=== PATIENT | female | born 1970 | race Caucasian/White ===

== ENCOUNTER 2023-09-13 08:21 | Inpatient (IN) ==
--- NOTE | 2023-08-28 10:25 | PAT Medication Instructions ---
Medication Instructions Date of Service August 28, 2023 Home Medications acetaminophen 500 mg tablet 500 mg PO QID PRN Pain diclofenac sodium 75 mg tablet,delayed release 75 mg PO BID escitalopram oxalate 10 mg tablet 10 mg PO QAM furosemide 20 mg tablet 20 mg PO QAM gabapentin 300 mg capsule 300 mg PO TID ASK your surgeon for instructions diclofenac sodium 75 mg tablet,delayed release 75 mg PO BID DO NOT take the morning of surgery furosemide 20 mg tablet 20 mg PO QAM Take morning of surgery With a small sip of water, OTHERWISE NOTHING TO EAT OR DRINK AFTER MIDNIGHT: acetaminophen 500 mg tablet 500 mg PO QID PRN Pain (if needed) escitalopram oxalate 10 mg tablet 10 mg PO QAM gabapentin 300 mg capsule 300 mg PO TID Take evening before surgery acetaminophen 500 mg tablet 500 mg PO QID PRN Pain (if needed) gabapentin 300 mg capsule 300 mg PO TID Other Notes If you have any questions please call us at [phone] or [phone] or [phone] or [phone]
--- NOTE | 2023-08-30 11:32 | Anesthesiology Consultation ---
Date of Service August 30, 2023 Assessment & Plan (1) Encounter for pre-operative examination: Plan - awaiting surgeon ordered medical clearance, Dr. Jennifer Davidson. Chart Review Chart Review: Pending: Refer to Additional Notes / Consult section and Patient seen in Pre Admission Testing Teaching & Discussion Pre-Anesthesia Teaching/Discussion Notes: Instructed NPO after midnight before surgery, except medications with 15 cc of water. Medication instructions provided according to the PAT guidelines. History Surgery Operation Date: 09/13/23 12:55 Proposed Procedures p L4-S1 Decompression and Fusion, Spinal Cord Monitoring - Luis F Flores, Height/Weight Height: 5 ft 7 in Weight: 152.5 kg Allergies Allergy/AdvReac Type Severity Reaction Status Date / Time bacitracin Allergy Severe Rash Verified 08/26/23 10:12 [From Triple Antibiotic] neomycin Allergy Severe Rash Verified 08/26/23 10:12 [From Triple Antibiotic] polymyxin B Allergy Severe Rash Verified 08/26/23 10:12 [From Triple Antibiotic] food dye Allergy Severe Hives Uncoded 08/26/23 10:14 Medications Home Medications Medication Instructions Recorded Confirmed Last Taken acetaminophen 500 mg tablet 500 mg PO QID PRN Pain 08/26/23 08/26/23 Unknown diclofenac sodium 75 mg 75 mg PO BID 08/26/23 08/26/23 Unknown tablet,delayed release escitalopram oxalate 10 mg tablet 10 mg PO QAM 08/26/23 08/26/23 Unknown furosemide 20 mg tablet 20 mg PO QAM 08/26/23 08/26/23 Unknown gabapentin 300 mg capsule 300 mg PO TID 08/26/23 08/26/23 Unknown Past Medical History Medical History Anxiety History of anesthesia reaction "difficult time waking up, slow and groggy" Stress incontinence Patient denies h/o stroke, seizures, heart attack, heart failure, DM, HTN, blood clots/DVTs or blood transfusions. Exercise / Class Metabolic Activity II 4-5 Yardwork/Stairs/Walk up hill (denies chest discomfort or shortness of breath with 1 FOS) Past Surgical History Surgical History (Updated 08/30/23 @ 11:29 by Helen Spencer PA-C) History of hysterectomy History of surgery cervical lymph node excision yrs ago-benign Past Anesthesia History No Family Hx of Anesthesia Complications and Other (slow to wake, groggy: denies re-intubation) History of PONV No Hx of PONV and Hx of Motion Sickness Social History Smoking Status: Former smoker Do You Dip or Chew Tobacco: No Smoking End Date: 17 yr ago Hx Alcohol Use: Yes alcohol intake frequency: holidays/special occasions only Hx Substance Use: No substance use type: does not use Review of Systems Snoring, denies witnessed apneas. Patient denies chest pain, shortness of breath, dyspnea on exertion, reflux, fever, chills, cough, wheezing, or palpitations. Physical Exam Vital Signs Vitals BP 131/90 P 84 TEMP 98.3 SP02 97% on RA RESP 18 Physical Patient resting comfortably in chair in no acute distress, alert and oriented, responding appropriately throughout visit Full cervical extension range of motion without pain TMD < 3 finger breadths Mallampati Score 3, small oral opening Dentition: intact, denies chipped or loose teeth, caps/crowns, implants or bridges Lungs: normal respiratory effort. Good air movement, clear throughout to auscultation, no adventitious breath sounds Cardiac: regular rate and rhythm, no murmurs noted Carotid arteries: negative bruit bilat Lab Results Anesthesia Preop Results Results Anesthesia Widget: WBC 6.82 K/ul (4.8-10.8) 08/30/23 Hgb 13.6 g/dl (12.0-16.0) 08/30/23 Hct 42.2 % (37.0-47.0) 08/30/23 Plt 298 K/uL (130-400) 08/30/23 Na 137 mmol/L (136-145) 08/30/23 K 4.1 mmol/L (3.5-5.1) 08/30/23 Cl 102 mmol/L (98-107) 08/30/23 CO2 28 mmol/L (21-32) 08/30/23 BUN 15 mg/dl (6-23) 08/30/23 Creat 0.78 mg/dl (0.6-1.2) 08/30/23 Glucose Level 121 mg/dl (70-99(Fasting)) H 08/30/23 PT 10.7 Seconds (9.0-12.0) 08/30/23 PTT 24.5 Seconds (21.0-31.0) 08/30/23 INR 1.0 (0.9-1.1) 08/30/23 Urine Color Yellow 08/30/23 Urine Appearance Clear (Clear) 08/30/23 Urine pH 5.5 (4.5-7.5) 08/30/23 Urine Specific [place] 1.027 (1.000-1.030) 08/30/23 Urine Protein Negative (Negative) 08/30/23 Urine Glucose (UA) Negative (Negative) 08/30/23 Urine Ketones Negative (Negative) 08/30/23 Urine Blood Negative (Negative) 08/30/23 Urine Nitrite Negative (Negative) 08/30/23 Urine Bilirubin Negative (Negative) 08/30/23 Urine Urobilinogen Negative (Negative) 08/30/23 Urine Leukocyte Esterase Negative (Negative) 08/30/23 Blood Type A Positive 08/30/23 Antibody Screen NEGATIVE 08/30/23 Testing Electrocardiogram Date: 08/30/23 NSR, rate 77 bpm Chest X-Ray Date: 08/30/23 No acute process
[~2023-09-13 08:21] MED LIST: ACETAMINOPHEN 500 MG TAB PO SCH; CeleBREX 200 MG CAP PO SCH; GABAPENTIN 900 MG DOSE PO SCH; LR 15ML/HR IV SCH; LR 60ML/HR IV SCH
[2023-09-13] MEDS ORDERED: ONDANSETRON INJ 2 MG/ML 2 ML VIAL IV PRN ×2 (09:43→16:25)
[2023-09-13] MEDS ORDERED: PROMETHAZINE HCL 6.25 MG in SODIUM CHLORIDE 0.9% 50 ML IV PRN (09:43)
[2023-09-13] MEDS ORDERED: ePHEDrine sulfate 50 MG/ML AMP IV PRN (09:43)
[2023-09-13] MEDS ORDERED: ATROPINE SULFATE 0.1 MG/ML 10ML SYR IV PRN (09:43)
[2023-09-13] MEDS ORDERED: LIDOCAINE 2% 2 ML VIAL/AMP(20MG/ML) INFIL ONE (10:05)
[2023-09-13] MEDS ORDERED: ONDANSETRON INJ 2 MG/ML 2 ML VIAL ONE (10:05)
[2023-09-13] MEDS ORDERED: PROPOFOL IV EMULSION 10 MG/ML 20 ML VIAL IV ONE (10:05)
[2023-09-13] MEDS ORDERED: MIDAZOLAM HCL 1 MG/ML 2ML VIAL ONE (10:05)
[2023-09-13] MEDS ORDERED: NEOSTIGMINE METHYLSULFATE 1 MG/ML 10ML VIAL ONE (10:06)
[2023-09-13] MEDS ORDERED: ROCURONIUM BROMIDE 10 MG/ML 5 ML VIAL IV ONE ×11 (10:06→13:05)
[2023-09-13] MEDS ORDERED: DEXAMETHASONE SOD INJ 4 MG/ML VIAL ONE (10:06)
[2023-09-13] MEDS ORDERED: GLYCOPYRROLATE 0.2 MG/ML VIAL ONE (10:06)
[2023-09-13] MEDS ORDERED: HYDROmorphone INJ 2 MG/ML SYR/VIAL ONE (10:06)
[2023-09-13] MEDS ORDERED: fentaNYL citrate PF 100 MCG/2 ML VIAL ONE (10:06)
--- NOTE | 2023-09-13 10:09 | History & Physical Bridge Note ---
Date of Service September 13, 2023 History & Physical Bridge Note I have examined the patient, reviewed the History & Physical and in the interval since the performance of the History & Physical I have noted the following changes of clinical significance: no changes noted
--- NOTE | 2023-09-13 10:10 | History & Physical Report ---
Date of Service September 13, 2023 Assessment & Plan (1) Neurogenic claudication due to lumbar spinal stenosis: Plan: L4-S1 decompression and fusion History of Present Illness Chief Complaint: Back and leg pain Primary Care Provider: Jennifer Davidson This is a 53-year-old female presents with chronic persistent back and leg pain after failing course of nonoperative care she is here for surgical invention. Allergies Allergy/AdvReac Type Severity Reaction Status Date / Time bacitracin Allergy Severe Rash Verified 09/13/23 08:58 [From Triple Antibiotic] neomycin Allergy Severe Rash Verified 09/13/23 08:58 [From Triple Antibiotic] polymyxin B Allergy Severe Rash Verified 09/13/23 08:58 [From Triple Antibiotic] food dye Allergy Severe Hives Uncoded 09/13/23 08:58 Home Medications Medication Instructions Recorded Confirmed Type acetaminophen 500 mg tablet 500 mg PO QID PRN Pain 08/26/23 09/13/23 History diclofenac sodium 75 mg 75 mg PO BID 08/26/23 09/13/23 History tablet,delayed release escitalopram oxalate 10 mg tablet 10 mg PO QAM 08/26/23 09/13/23 History (Lexapro) furosemide 20 mg tablet 20 mg PO QAM 08/26/23 09/13/23 History gabapentin 300 mg capsule 300 mg PO TID 08/26/23 09/13/23 History Past Med/Surg History Medical History (Updated 09/13/23 @ 10:10 by Luis F Flores DO) History of anesthesia reaction "difficult time waking up, slow and groggy" Stress incontinence Anxiety Surgical History (Updated 08/30/23 @ 11:29 by Helen Spencer PA-C) History of surgery cervical lymph node excision yrs ago-benign History of hysterectomy Social History Smoking Status: Former smoker Tobacco Type: Cigarettes Smoking End Date: 17 yr ago; Do You Dip or Chew Tobacco: No; Tobacco Cessation Education Requested by Patient: No Hx Alcohol Use: Yes Hx Substance Use: No Preferred Language: French Windshield Repair Technician Required: No Beliefs That Will Affect Care: None Current Living Situation: Spouse Feels Safe at Home: Yes Safety Concerns: Feels Safe At This Time Assistive Devices: Cane and Glasses Physical Exam Physical Exam: Patient is alert and oriented Heart regular rhythm lungs clear Results & Data Results & Data Vital Signs (Past 12 Hours) Vital Signs Temp Pulse Resp BP Pulse Ox O2 Del Method 09/13/23 09:01 36.8 C 77 18 152/85 H 97 Room Air
[2023-09-13] MEDS ORDERED: ceFAZolin 330 MG/ML 1 GM VIAL ONE (10:39)
[2023-09-13] MEDS ORDERED: BUPIVACAINE/EPINEPHRINE 0.25% 1:200,000 30 ML VIAL ONE (10:39)
[2023-09-13] MEDS ORDERED: FLOSEAL HEMOSTATIC MATRIX 10ML TOP ONE (11:31)
[2023-09-13] MEDS ORDERED: ePHEDrine sulfate 50 MG/5 ML SYR ONE (11:44)
[2023-09-13] MEDS ORDERED: SURGICEL ABSORB HEMOSTAT 2IN X 14IN TOP ONE (12:48)
[2023-09-13] MEDS ORDERED: ALBUMIN HUMAN 5% 12.5 GM/250 ML VIAL IV ONE (13:03)
[2023-09-13] MEDS ORDERED: SUGAMMADEX SODIUM 200 MG/2 ML VIAL IV ONE (13:13)
--- NOTE | 2023-09-13 13:21 | Operative Report ---
Post Operative Report Pre & Post Diagnosis Operation Date: 09/13/23 10:15 Pre-Op Diagnosis: Patient lumbar spinal stenosis with neurogenic claudication Morbid obesity Post-Op Diagnosis: Same I identified the patient and participated in the time-out.: Yes Procedure Operation Date: 09/13/23 10:15 Actual Procedures #1 lumbar decompression bilateral medial facetectomies and foraminotomies L3-L4, L4-5 and L5-S1. #2 posterior spinal fusion L4-5 L5-S1. #3 please posterior instrumentation L4-S1. #4 interbody fusion L4-L5 L5-S1. #5 placement spiral 14 x 26 mm cage at L4-5 and 13 x 26 mm cage x2 at L5-S1. #6 placement of locally harvested morselized autograft and posterior gutters. #7 placement of I factor interbody spaces and infuse bone sponge by mass graft in the posterior gutters. Surgeon Luis F Flores, DO Training And Development Assistant Star Ni Estimated Blood Loss 1,200 Findings See Below The patient is 5 foot 7 weighing over 152 kg a BMI in excess of 52. This combined with an EBL of greater than 1000 cc created significant technical difficulty and a at least Specimens None Indications This is a 53-year-old female who presents above-mentioned diagnosis of pain since course of nonoperative care is here for surgical invention. Description of Procedure Patient met with identified informed consent obtained. Patient was then taken to the operative suite underwent ablation placed in a prone position ingestible top Laurent frame. All bony promises well-padded eyes inspected to ensure no external precipice spine. This point lumbar spine was prepped and draped in a sterile fashion. Sharp dissection with the assistance of Bovie cards from down to and exposing the lamina and transverse processes of L4-5 and sacral ala bilaterally. For calcified fashion complete laminectomy of L5 L4 partial laminectomy L3 was performed including bilaterally facetectomies and foraminotomies addressing severe spinal stenosis and obvious neural compression. Pedicle screws were then placed in L4-5 and S1 levels bilaterally with assistance of fluoroscopy in the process marcella placed. By way of transforaminal approach on the right discectomy L5-S1 was performed endplates created to subcortical bone and a 13 x 26 mm Spira cage with I factor tapped in position. Then proceeded to the left side of the L5-S1 completed discectomy through a transforaminal approach and plates created to subcortical mean bone and a second 13 x 26 mm Spira cage with I factor tapped position. Then proceeded to L [address] of transforaminal approach on the right complete discectomy was performed endplates created to subcortical mean bone and a 14 x 26 mm prior cage with I factor tapped position. The rods were then compressed locked in final position bilaterally. The transverse processes of L4-5 and sacral ala burred to subcortical bleeding bone. Infuse collagen sponge for mass graft local autograft placed in the posterior gutters. 15 round ADALBERTO inserted. Incision was then closed with 1 Vicryl fascia 2-0 Vicryl subcutaneously and 4 Monocryl for final closure Steri-Strips sterile dressings placed. Patient waken taken to PACU stable condition. Please note spinal cord monitoring visualized at the procedure no changes noted. Lastly Star Ni was present at the entire surgery about the patient position complex portion of the surgeon fashion closure. I attest to the content of the Intraoperative Record and any orders documented therein. Any exceptions are noted below.
[2023-09-13] MEDS ORDERED: LABETALOL HCL IV 5 MG/ML 20ML IV ONE (13:35)
--- NOTE | 2023-09-13 13:38 | Fluoroscopy Report ---
FL lumbar spine 2-3V CLINICAL HISTORY: L4-S1 DECOMPRESSION AND FUSION COMPARISON STUDY: None FLUOROSCOPY TIME: 30.3 seconds FLUOROSCOPY IMAGES: 3 EXPOSURE DOSE: 49.33 mGy FINDINGS: Posterior interbody marcella and screw fusion hardware with discectomy changes noted at what is labeled the L4-S1 levels. The hardware appears intact. No unexpected opaque foreign body is identifie d. IMPRESSION: Fluoroscopic assistance as above. ACT 112: Negative or not required by law. Electronically signed by: Maynor Lawson M.D. 09/13/2023 1:37 PM
[2023-09-13] MEDS: fentaNYL citrate PF 100 MCG/2 ML VIAL IV PRN ×4 (14:32→14:50)
[2023-09-13] MEDS: HYDROmorphone INJ 2 MG/ML SYR/VIAL IV PRN ×2 (14:57→15:07)
--- NOTE | 2023-09-13 15:16 | Anesthesiology Progress Note ---
Date of Service September 13, 2023 Anesthesia Post Procedure Vital Signs Vital Signs: Temp Pulse Pulse Resp BP Pulse Ox O2 Del Method 09/13/23 15:00 36.1 C L 84 12 154/78 H 95 Nasal Cannula 09/13/23 14:50 83 13 145/83 H 96 Oxymask 09/13/23 14:40 86 17 158/78 H 95 Oxymask 09/13/23 14:30 81 12 168/85 H 95 Oxymask 09/13/23 14:20 82 14 148/83 H 95 Oxymask 09/13/23 14:10 81 14 146/88 H 94 Oxymask 09/13/23 14:00 77 15 151/81 H 95 Oxymask 09/13/23 13:51 36.4 C L 78 13 162/81 H 98 Oxymask 09/13/23 09:01 36.8 C 77 18 152/85 H 97 Room Air O2 Flow Rate 09/13/23 15:00 4 09/13/23 14:50 4 09/13/23 14:40 4 09/13/23 14:30 4 09/13/23 14:20 4 09/13/23 14:10 4 09/13/23 14:00 6 09/13/23 13:51 6 09/13/23 09:01 Pain Intensity Bilateral Back: Pain Intensity: 5 Left Leg: Pain Intensity: 5 Transfer of Care Handoff Completed per policy Notes Mental Status: alert / awake / arousable Patient Amnestic to Procedure: Yes Nausea / Vomiting: adequately controlled Pain: adequately controlled Airway Patency, RR, SpO2: stable & adequate BP & HR: stable & adequate Hydration State: stable & adequate Anesthetic Complications: no major complications apparent
[2023-09-13] MEDS ORDERED: MAGNESIUM HYDROXIDE SUSP 30 ML UDC PO PRN (16:25)
[2023-09-13] MEDS ORDERED: FAMOTIDINE 20 MG TAB PO PRN (16:25)
[2023-09-13] MEDS ORDERED: diphenhydrAMINE Capsule 25 MG CAP PO PRN (16:25)
[2023-09-13] MEDS ORDERED: ACETAMINOPHEN 1,000 MG/100 ML VIAL IV PRN (16:25)
[2023-09-13] MEDS ORDERED: HYDROmorphone INJ 1 MG/ML SYRINGE IV PRN (16:25)
[2023-09-13] MEDS ORDERED: ACETAMINOPHEN 500 MG TAB PO PRN (16:25)
[2023-09-13] MEDS ORDERED: DO NOT ADMINISTER FLU VACCINE PRN (16:25)
[2023-09-13] MEDS ORDERED: ALUMINUM/MAGNESIUM SUSP 30 ML UDC PO PRN (16:25)
[2023-09-13] MEDS ORDERED: HYDROmorphone INJ 0.5 MG/0.5 ML SYR IV PRN (16:25)
[2023-09-13] MEDS ORDERED: NALOXONE HCL 0.4 MG/1 ML VIAL/CARP IV PRN (16:25)
[2023-09-13] MEDS ORDERED: bisacodyL 10 MG SUPP PR PRN (16:25)
[2023-09-13] MEDS ORDERED: LORazepam 0.5 MG TAB PO PRN (16:25)
[2023-09-13] MEDS ORDERED: hydrOXYzine HCl 25 MG TAB PO PRN (16:25)
[2023-09-13] MEDS ORDERED: ONDANSETRON 4 MG OD TAB PO PRN (16:25)
[2023-09-13] MEDS ORDERED: METOCLOPRAMIDE HCL INJ 5 MG/ML 2 ML VIAL IV PRN (16:25)
[2023-09-13] MEDS ORDERED: oxyCODONE HCL IR 5 MG TAB (IMMEDIATE RELEASE) PO PRN (16:25)
[2023-09-13] MEDS ORDERED: LORazepam 2 MG/1 ML VIAL IV PRN (16:25)
[2023-09-13] MEDS ORDERED: PROMETHAZINE HCL 12.5 MG in SODIUM CHLORIDE 0.9% 50 ML IV PRN (16:25)
[2023-09-13] MEDS ORDERED: SOD PHOSPHATE/SOD BIPHOSPHATE ENEMA 132 ML BTL PR PRN (16:25)
[2023-09-13] MEDS ORDERED: DO NOT ADMINISTER PNEUMOCOCCAL VACCINE PRN (16:25)
[2023-09-13] MEDS: LACTATED RINGER'S 1,000 ML IV SCH ×2 (16:58→23:55)
[2023-09-13] MEDS: GABAPENTIN 300 MG CAP PO SCH ×2 (18:16→20:40)
[2023-09-13] MEDS: ceFAZolin 2000MG 2,000 MG/15 ML SYR IV SCH (18:16)
[2023-09-13] MEDS: DOCUSATE SODIUM/SENNA 50/8.6MG TAB PO SCH (20:40)
[2023-09-13] MEDS: traMADol HCL 50 MG TABLET PO PRN (20:43)
[2023-09-14] MEDS: traMADol HCL 50 MG TABLET PO PRN ×3 (03:14→17:39)
[2023-09-14] MEDS: ceFAZolin 2000MG 2,000 MG/15 ML SYR IV SCH (03:14)
[2023-09-14 06:27] LABS: Basophils # (auto) 0.01 K/uL (0.00-0.20); Basophils % (auto) 0.1 %; Hematocrit (blood only) 30.7 % (37.0-47.0); Immature Granulocytes # (auto) 0.11 K/uL (0.01-0.20); Immature Granulocytes % (auto) 0.9 %; Lymphocytes # (auto) 1.07 K/uL (1.20-3.40); Lymphocytes % (auto) 8.6 %; Mean Corpuscular Hemoglobin 29.2 pg (25.0-34.0); Mean Corpuscular Hgb Conc 32.6 g/dL (32.0-36.0); Mean Corpuscular Volume 89.8 fL (80.0-100.0); Mean Platelet Volume 9.6 fL (9.4-12.4); Monocytes % (auto) 7.2 %; Neutrophils % (auto) 83.2 %; Platelet Count 236 K/uL (130-400); RDW Coefficient of Variation 14.1 % (11.5-14.5); RDW Standard Deviation 46.6 fL (36.4-46.3); Red Blood Count 3.42 M/uL (4.20-5.40); White Blood Count 12.49 K/ul (4.8-10.8)
[2023-09-14] MEDS: POLYETHYLENE (MIRALAX) 17 GM PACK PO SCH ×3 (06:33→17:41)
[2023-09-14 06:36] LABS: BUN Creatinine Ratio 16.7 (10-20); Calcium 8.4 mg/dl (8.6-10.3); Creatinine Clr Calc Pharmacy 139.7 ml/min; Est GFR (African American) 110.8 ml/min; Est GFR (Non-African American) 95.6 ml/min; Potassium 4.2 mmol/L (3.5-5.1)
[2023-09-14] MEDS: dexAMETHasone 6 MG in SYRINGE 0 ML IV SCH (08:35)
[2023-09-14] MEDS: FUROSEMIDE 20 MG TAB PO SCH (08:35)
[2023-09-14] MEDS: ESCITALOPRAM OXALATE 10 MG TAB PO SCH (08:35)
[2023-09-14] MEDS: LACTATED RINGER'S 1,000 ML IV SCH ×3 (10:32→17:42)
[2023-09-14] MEDS: GABAPENTIN 300 MG CAP PO SCH ×3 (10:34→19:56)
--- NOTE | 2023-09-14 11:36 | Orthopedic Progress Note ---
Date of Service September 14, 2023 Assessment & Plan (1) Neurogenic claudication due to lumbar spinal stenosis: Plan: This time continue physical therapy monitor ADALBERTO output hopefully discharge home Saturday. Admission and Anticipated Discharge Date Admission Date: September 13, 2023 Subjective Patient's back pain is controlled. She is noting some difficulty using the right leg with ambulation but no radicular complaints. Physical Exam Physical Exam: On exam she is currently in bed. She appears to be reasonable symmetric plantarflexion dorsiflexion quadriceps bilaterally. Sensory is intact. Results & Data Vital Signs (Past 12 Hours) Vital Signs Temp Pulse Resp BP BP Pulse Ox O2 Del Method 09/14/23 08:57 36.7 C 84 18 116/67 93 Room Air 09/14/23 08:15 37.1 C 83 16 105/70 93 Room Air 09/14/23 03:00 37.0 C 89 18 122/69 95 Nasal Cannula O2 Flow Rate 09/14/23 08:57 09/14/23 08:15 09/14/23 03:00 2 Queries Orthopedic Spine Acute Posthemorrhagic Anemia: Yes Obesity: Yes
[2023-09-14] MEDS: DOCUSATE SODIUM/SENNA 50/8.6MG TAB PO SCH (19:57)
[2023-09-15] MEDS: traMADol HCL 50 MG TABLET PO PRN ×5 (01:21→18:30)
[2023-09-15] MEDS: POLYETHYLENE (MIRALAX) 17 GM PACK PO SCH ×5 (01:21→20:31)
[2023-09-15] MEDS: LACTATED RINGER'S 1,000 ML IV SCH ×2 (03:16→08:55)
[2023-09-15] MEDS: dexAMETHasone 6 MG in SYRINGE 0 ML IV SCH (09:02)
[2023-09-15] MEDS: ESCITALOPRAM OXALATE 10 MG TAB PO SCH (09:03)
[2023-09-15] MEDS: GABAPENTIN 300 MG CAP PO SCH ×3 (09:03→20:29)
[2023-09-15] MEDS: FUROSEMIDE 20 MG TAB PO SCH (09:04)
--- NOTE | 2023-09-15 11:27 | Orthopedic Progress Note ---
Date of Service September 15, 2023 Assessment & Plan (1) Neurogenic claudication due to lumbar spinal stenosis: Plan: This time continue physical therapy monitor ADALBERTO output anticipate discharge home tomorrow. Admission and Anticipated Discharge Date Admission Date: September 13, 2023 Subjective Back pain controlled leg pain improved tolerating physical therapy Physical Exam Physical Exam: Patient is now in bed. She is real strength testing to the lower extremities with evidence of L4-5 right dorsiflexion. There is no sensory deficits. Results & Data Vital Signs (Past 12 Hours) Vital Signs Temp Pulse Resp BP BP Pulse Ox O2 Del Method 09/15/23 08:35 37.4 C 85 16 118/75 92 Room Air 09/15/23 01:30 EDT 36.4 C L 87 18 108/68 94 Room Air Queries Orthopedic Spine Acute Posthemorrhagic Anemia: Yes Obesity: Yes
[2023-09-15] MEDS: DOCUSATE SODIUM/SENNA 50/8.6MG TAB PO SCH (20:29)
[2023-09-16] MEDS: traMADol HCL 50 MG TABLET PO PRN ×3 (04:39→13:59)
[2023-09-16] MEDS: POLYETHYLENE (MIRALAX) 17 GM PACK PO SCH ×2 (04:40→12:53)
[2023-09-16] MEDS: GABAPENTIN 300 MG CAP PO SCH (09:05)
[2023-09-16] MEDS: FUROSEMIDE 20 MG TAB PO SCH (09:05)
[2023-09-16] MEDS: ESCITALOPRAM OXALATE 10 MG TAB PO SCH (09:05)
[2023-09-16] MEDS: dexAMETHasone 6 MG in SYRINGE 0 ML IV SCH (09:06)
--- NOTE | 2023-09-16 10:04 | Discharge Summary ---
Date of Service September 16, 2023 Admission HPI Per Admitting Provider This is a 53-year-old female presents with chronic persistent back and leg pain after failing course of nonoperative care she is here for surgical invention. Principal Diagnosis Lumbar spinal stenosis with neurogenic claudication Discharge Data Allergies Allergy/AdvReac Type Severity Reaction Status Date / Time bacitracin Allergy Severe Rash Verified 09/13/23 08:58 [From Triple Antibiotic] neomycin Allergy Severe Rash Verified 09/13/23 08:58 [From Triple Antibiotic] polymyxin B Allergy Severe Rash Verified 09/13/23 08:58 [From Triple Antibiotic] blue dye Allergy Verified 09/14/23 10:08 orange (food color) Allergy Verified 09/14/23 10:08 red (food color) Allergy Verified 09/14/23 10:08 red dye Allergy Verified 09/14/23 10:08 yellow dye Allergy Verified 09/14/23 10:08 food dye Allergy Severe Hives Uncoded 09/13/23 08:58 Procedures Performed Operation Date: 09/13/23 10:15 Actual Procedures p L4-S1 Decompression and Fusion, Spinal Cord Monitoring(Not Applicable) - Luis F Flores DO Ordered Studies 09/13/23 10:15 [place] lumbar spine 2-3V Routine Hospital Course (1) Neurogenic claudication due to lumbar spinal stenosis: Patient underwent lumbar decompression fusion tolerated as well as taken to the orthopedic floor postoperative. Postop patient progressed appropriately. Pain well controlled. Excellent strength testing. ADALBERTO drain decreased appropriately. Subsequent discharge home. Discharge orders and instructions from the chart for further review. Total Time Total Time Spent Total Time Spent (In Minutes): 20 minutes Discharge Plan Discharge Items Patient Disposition: Home - Self-Care Reason For Visit: POSTOP Discharge Diagnosis: Lumbar spinal stenosis with neurogenic claudication Activity: As commented below Non-emergency contact: Primary Care Provider Call non-emergency contact if: you have any medication questions Follow-up/Referrals: Jennifer Davidson M.D. [Primary Care Provider] - Diet: Regular Addtl Attending Provider Instructions: ACTIVITY RECOMMENDATIONS: SELF CARE INSTRUCTIONS AFTER THORACIC/LUMBAR FUSIONS 1. You may walk to your tolerance. It is good exercise for your legs and back. Expect some back and intermittent leg aches and pains. 2. You may perform "counter-top" level activities (make a sandwich, paula with a project, etc.). 3. No bending or lifting of more than 10 pounds or back twisting of any nature (roll like a log when turning in bed). 4. You may ride in a car for 20-30 minutes at a time. No driving until after your first visit with your doctor. 5. Frequent changes of position and restricting sitting to 30 minutes at a time will help limit the amount of back spasms and stiffness you may experience. 6. You may discontinue the use of ambulatory aids (cane, crutches, etc.) once your strength and confidence allow. 7. You may pipe installer the shower and let water strike your incision when you arrive home at least once daily. Do not take a tub bath, sit in a hot tub or go into a swimming pool until after your first recheck in the office. SPECIAL CARE INSTRUCTIONS: VERY IMPORTANT TO READ AND REVIEW A. Your surgical incision has been closed with a cosmetic suture under the skin that will dissolve in about 6 weeks. In 14 days, you can use a pair of clean scissors and cut the suture that is left outside of the skin at the ends of your incision. 1. The small skin tapes can be removed 7 days after surgery if they have not fallen off by that point. 2. You may keep the wound open to air as much as possible to promote healing after post-op day number 5 unless told otherwise by your doctor. 3. If you think the wound looks like it is becoming infected (redness or worsening drainage) and/or you are experiencing fever, chill or worsening back pain and muscle spasms, contact the office so that we may evaluate you as soon as possible. B. Complications are uncommon, but please contact us if you have any signs or symptoms of: 1. wound infection (fever higher than 102.5 degrees F, redness, separation of wound, drainage, or increasing pain from the incision) 2. blood clots in legs (pain, swelling, redness and warmth in legs) 3. urinary tract infection (fever higher than 102.5 degrees F, burning upon urination or increased frequency of urination) 4. nerve problems (inability to walk on your toes or heels, numbness, loss of bowel or bladder control) 5. any other symptoms that concern you C. Please call the office at if you have any concerns or questions about your operation or recovery. D. No smoking! Smoking drastically decreases the chance of a solid fusion. E. Do not take any anti-inflammatory medications (Indocin, Advil, Motrin, Aspirin, Naprosyn, etc.) as these may inhibit the chance of a solid fusion. Tylenol is okay to take for pain. MANAGING PAIN AFTER SPINAL SURGERY 1. Narcotic medication is intended for short-term use and will be provided for surgical pain. Surgical pain usually lasts for a period of 4-6 weeks. Narcotic medication includes Percocet, Vicodin, Darvocet, Tylenol #3 or Lortab. 2. Longer-term pain is more appropriately treated with non-narcotic medication such as Tylenol ES. 3. Muscle spasm is not appropriately treated with narcotics. Muscle relaxers such as Soma, Flexeril or Skelaxin can be used along with Tylenol ES. 4. Remember that we all live with some "aches and pains". This is not unusual or uncommon after an injury or as we get older. a. Back pain is expected and may include muscle spasms for 4 to 6 weeks after surgery. The pain should gradually improve. If the pain worsens for no apparent reason, please contact the office. b. Intermittent leg pain may also be experienced and should not be concerned about unless it worsens for no apparent reason. If so, please contact the office. 5. We will provide appropriate medication within the normal guidelines of their prescribed use. We will also be very cautious and aware of potential abuse and extended duration of patients' medication needs. a. Pain medications are for your comfort and to assist with sleep and rest so that the tissue can heal. They are not provided in order to return to normal activity and should not be used through the day. To do so or worsening pain at night can result from ongoing tissue damage and development of tolerance to the prescribed medicine. 6. Please allow 2-3 days to process refills. Prescriptions will not be mailed but must be picked up at the office. FOLLOW UP VISIT: Keep your scheduled follow-up appointment. Any questions, please call the office at . Pending Studies at Discharge: No Stand-Alone Forms: [employer], Smoking Cessation Medications and DC Order Prescriptions: New tramadol 50 mg tablet 50 mg PO Q6H PRN (Reason: pain, moderate) Qty: 30 0RF oxycodone 5 mg tablet 5 mg PO Q6H PRN (Reason: pain) Qty: 30 0RF Continued acetaminophen 500 mg Tablet 500 mg PO QID PRN (Reason: Pain) gabapentin 300 mg Capsule 300 mg PO TID diclofenac sodium 75 mg Tablet,Delayed Release (Dr/Ec) 75 mg PO BID furosemide 20 mg Tablet 20 mg PO QAM escitalopram oxalate [Lexapro] 10 mg Tablet 10 mg PO QAM Discharge Orders: Discharge Order (Routine); Ordered 09/16/23 Ordered By: Luis F Flores Admission Data Admit Date/Time: 09/13/23 13:23 Attending Provider: Luis F Flores Admit Provider: Luis F Flores Primary Care Provider: Jennifer Davidson
== END 2023-09-16 14:46 | disposition home or self-care (01) | DRG 454 ==
LOC: ASU 08:21 → 3N 13:23